=== PATIENT | female | born 1990 | race Caucasian/White ===

== ENCOUNTER 2024-12-20 14:27 | Day surgery (SDC) | payer OTHER ==
[2024-12-20] MEDS ORDERED: HYDROCORTISONE SOD SUCCINATE 100 MG/2 ML VIAL IVPB PRN (14:52)
[2024-12-20] MEDS: IRON SUCROSE INJECTION 200 MG in SODIUM CHLORIDE 100 ML IVPB ONE (15:03)
[2024-12-20 17:56] VITALS: BP 112/64; PULSE 67; RESP 18; TEMP 98.6
== END 2024-12-20 17:00 | disposition home or self-care (01) ==
LOC: FINFUSION 14:27 → FM/S 14:29 → FINFUSION 17:00
PROVIDERS: ATTEND Internal Medicine
PROC: 3E033GC Introduction of Other Therapeutic Substance into Peripheral Vein, Percutaneous Approach (ICD-10-PCS; principal; 2024-12-20)
DX: D50.9 Iron deficiency anemia, unspecified (principal)
CPT/HCPCS: 96365; J1756